=== PATIENT | male | born 1980 | race Caucasian/White ===

== ENCOUNTER 2016-05-21 20:57 | Emergency (ER) | payer OTHER ==
[~2016-05-21] VITALS: Ht 188 cm; Wt 109.1 kg
[2016-05-21 20:58] VITALS: BP 128/63; PULSE 89; RESP 12; O2SAT 99
--- NOTE | 2016-05-21 21:05 | ED.REPORT ---
HPI-General Illness Date of Service May 21, 2016 ED Provider: Adal Hope MD Patient is a 35 year old male who presents to the ED via EMS with altered mental status after he was found confused at the [employer] parking lot this evening. Patient was reportedly trying to get into vehicles that did not belong to him. Patient was found to be hypoglycemic by EMS (too low to read) and he was given glucagon. Most recent blood sugar was 145 prior to arrival. Patient denies being diabetic and states that he ate "lots of sweets" tonight. The patient is only to oriented to himself. The patient states that he lives in [facility] and that he left his house to get something to eat. Patient first states that he is in [place] but then later believes that he is in [facility]. Patient is not able to clarify why he drove up to [facility]. He drives a [employer] Escalade. The patient is trying to contact his sister on arrival to the ED but is having difficulty using his phone. He admits that he was confused prior to arrival but states that he is no longer confused. The patient reports that his only prescription drug is the muscle relaxer soma, which reports to be using as prescribed. Of note, 2x soma tablets were found in his possession. Patient denies alcohol or illicit drug abuse. Patient states that he was seen at the [facility] this morning but denies recently being seen at [facility] ED. Patient states that Dr. Dowling is his Suboxone provider and that he saw him " 2 hours ago". Patient is a very difficult historian due to his altered mental status. Nursing Notes Stated Complaint: LOW BLOOD SUGAR Chief Complaint: General Complaint Nursing Notes Reviewed: Yes Allergies: Coded Allergies: No Known Allergies (Unverified , 05/21/16) General Time Seen by MD: 21:00 Chief Complaint Altered mental status Hx Obtained From: Patient, EMS Arrived By: Ambulance Sudden in Onset?: No Onset Occurred: 1 - 4 hours ago Symptom Duration: Since onset Location: : Abdomen Quality: Painful Recent Healthcare: No recent hospitalization, Recent doctor visit Similar Sx Previous: No Past Medical History Past Medical History none reported Denies: Diabetes mellitus Past Surgical History none reported Smoking History Unknown if Ever Smoker Social History Alcohol Use: Denies alcohol use Drug Use: Denies drug use Other Social History: From out of town Ambulatory Status Independent Review of Systems Unable to Obtain ROS Patient condition (altered mental status) Full Review of Systems Neurologic: Reports: Change LOC, Confusion Psychiatric: Reports: Change mental status Physical Exam Vital Signs Vital Signs Date Time Temp Pulse Resp B/P Pulse Ox O2 Delivery O2 Flow Rate FiO2 05/21/16 23:38 74 18 147/92 97 Room Air 05/21/16 20:58 36.6 89 12 128/63 99 Room Air Initial VS: Reviewed, Vital signs normal Head / Eyes: Atraumatic, Normocephalic, PERRL ENT: Conjunctiva normal, No scleral icterus Respiratory: Breath sounds normal, Clear to auscultation, No respiratory distress Cardiovascular: Regular rate & rhythm, Heart sounds normal Abdomen / GI: Soft, Non-tender, No guarding, No rebound General/Constitutional: Awake, Alert Alertness: Positive: Confused, Disoriented, Sedated (mildly) perseverates on a task Head / Eyes: Normocephalic, PERRL eyelids droop ENT: Airway patent, Mucous membranes moist Neck: Supple, No JVD Upper Extremities Upper Extremity / MS: No swelling, No edema Lower Extremity / Pelvis / MS: No swelling, No edema Skin: Color NL, No rash, Warm, Dry Rash / Lesion Pattern: Negative: Track reyes (no signs of injection drug use) Mental Status: Positive: Disoriented to place, Disoriented to time, Pharmacologically sedated (mildly) Speech: Positive: Slow, Negative: Slurred (speech is abnormal but not slurred) Interpretation & Diagnostics Interpretation & Diagnostics: Urine Tox Dip: Positive for benzodiazepines and TCAs. All else negative. Lab Results Interpretation Result Diagram: 05/21/16214405/21/162144 Test 05/21/16 21:45 White Blood Count 10.7th/mm3 (3.8-10.1) Red Blood Count 4.11mil/mm3 (4.40-5.80) Hemoglobin 12.5g/dL (13.8-17.2) Hematocrit 35.3% (41.0-50.0) Mean Corpuscular Volume 85.9fL (81-100) Mean Corpuscular Hemoglobin 30.4pg (27.0-35.0) Mean Corpuscular Hemoglobin Concent 35.4% (32.0-37.0) Red Cell Distribution Width 12.9% (12.3-15.4) Platelet Count 263bil/L (150-400) Neutrophils (%) (Auto) 71.4% (40-74) Lymphocytes (%) (Auto) 18.4% (14-46) Monocytes (%) (Auto) 8.8% (4-12) Eosinophils (%) (Auto) 0.9% (0-5) Basophils (%) (Auto) 0.3% (0-3) Hold Urine Received (Received) Sodium Level 141mEq/L (134-144) Potassium Level 4.1mEq/L (3.5-5.2) Chloride Level 102mEq/L (97-108) Carbon Dioxide Level 26mmol/L (18-29) Blood Urea Nitrogen 13mg/dL (6-20) Creatinine 0.71mg/dL (0.76-1.27) Estimat Glomerular Filtration Rate 134mL/min (>59) Glucose Level 104mg/dL (60-99) Calcium Level 9.0mg/dL (8.5-10.1) Magnesium Level 1.7mg/dL (1.6-2.6) Total Bilirubin 0.2mg/dL (0.0-1.2) Aspartate Amino Transf (AST/SGOT) 17U/L (0-50) Alanine Aminotransferase (ALT/SGPT) 23U/L (0-44) Alkaline Phosphatase 65U/L (25-150) Total Protein 6.5g/dL (6.4-8.4) Albumin 4.6g/dL (3.4-5.0) Hold Schaeffer Top Tube Received (Received) Salicylates Level 3.0ug/mL (30-250) Acetaminophen Level 15.0ug/mL Rx (10-25) Alcohol, Quantitative < 10mg/dL (0-10) Lab values outside NL range: no clinical significance. ECG Interpretation ECG Interpretation: Sinus rhythm, Rate 83 Incomplete right bundle branch block Normal early repol pattern Time: 21:57 Interpreted by: ED physician Re-Eval/Medical Decision Med Decision/Clinical Course 35-year-old male with a history of benzodiazepine, Soma, and Suboxone use presents with unexplained hypoglycemia and resultant confusion. He was given glucagon in the field. He refused an IV. His symptoms gradually resolved. Urine drug screen was positive for tricyclic antidepressant (false-positive related to Soma) and benzodiazepines. His ADVERTISING DISPLAY ROTATOR was reviewed. He is being discharged home to follow-up with his primary doctor. He has returned to normal , he is no longer confused or sedated. He will be taken by police, courtesy ride back to his vehicle. Source of Hx: Old records Time of Eval: 21:22 Re-Evaluation/Progress Note: Patient states that he would like his shirt and to leave the ED. Patient was informed that he can leave if his mother or sister come pick him up. Time of Eval: 23:32 Patient Status: Condition improved Re-Evaluation/Progress Note: Rechecked the patient, who is now dressed and wishes to leave the ED. He agrees that he will not drive home. Patient states that he lost a $6000 dollar ring this evening that his father gave hime. PD will escort him to his car to look for the ring. Patient is cleared for discharge. Discharge instructions and follow-up discussed. All questions were addressed. Return to the ED warnings given. Consultation : Call Returned at: 22:28 Note: Spoke with Poison Control about the patient. Soma can give a false positive for TCAs. Symptoms are most consistent with the patient taking a medication for diabetes. Counseled Regarding: Diagnosis, Lab results, Need for follow-up, When/why to return to ED Discharge & Departure Primary Impression: Hypoglycemia Additional Impression: Altered mental status Altered mental status type: unspecified Qualified Code: R41.82 - Altered mental status, unspecified Disposition: Home Discharge Condition All VS Reviewed: Yes Condition: Stable Patient Instructions: Non-diabetic Hypoglycemia (ED) Additional Instructions: The cause of your low blood sugar (hypoglycemia) is not known. Your sugar is now normal and your confusion is gone. You should follow up with your regular doctor if you have further problems. Referrals: Yazan Corcoran MD (PCP) Scribe Attestation Portions of this note were transcribed by Jayde Sweeney. I, Dr. Hope personally performed the history, physical exam and medical decision-making; I reviewed and confirmed the accuracy of the information in the transcribed note. Signed by: Florian Velasquez, 05/21/2016 [id number] copies to: Yazan Corcoran MD, Howard L MD May 21, 2016 21:04 Jayde Sweeney 7, 2017 21:13
[2016-05-21 21:57] LABS: BASOPHILS % (AUTO) 0.3 % (0-3); EOSINOPHILS % (AUTO) 0.9 % (0-5); MONOCYTES % (AUTO) 8.8 % (4-12); Mean Corpuscular Hemoglobin 30.4 pg (27.0-35.0); Mean Corpuscular Volume 85.9 fL (81-100); NEUTROPHILS % (AUTO) 71.4 % (40-74); Platelet Count 263 bil/L (150-400)
[2016-05-21 22:18] LABS: Magnesium 1.7 mg/dL (1.6-2.6)
[2016-05-21 23:38] VITALS: BP 147/92; PULSE 74; RESP 18; O2SAT 97
== END 2016-05-21 23:38 | disposition home or self-care (01) ==
LOC: EDBD 20:57 → SED 20:57
DX: E16.2 Hypoglycemia, unspecified (principal); R41.82 Altered mental status, unspecified
CPT/HCPCS: 80053; 81002; 82948; 83735; 85025; 93005; 99284; G0480